=== PATIENT | male | born 1970 | race Caucasian/White ===

== ENCOUNTER 2021-01-21 08:37 | Observation (INO) | payer OTHER, SELFPAY ==
[2021-01-21] VITALS (32 sets, daily range): BP systolic 123–157; BP diastolic 88–107; PULSE 80–105; RESP 15–23; TEMP 36.2–36.9; O2SAT 89–100; BMI 29.6
--- NOTE | ~2021-01-21 | XR_ITS ---
EXAMINATION: XR chest 2V DATE: 01/21/2021 09:13 INDICATION: Chest pressure TECHNIQUE: PA and lateral views of the chest were obtained. COMPARISON: None FINDINGS: The lungs are clear with no focal airspace opacities, pulmonary edema, pleural effusion or pneumothor ax. The cardiomediastinal silhouette is normal. Mild to moderate thoracic spondylosis with mild anter ior wedging of a few lower thoracic vertebral bodies. IMPRESSION: 1. No acute cardiopulmonary disease. Reviewed, dictated and finalized at location A.
--- NOTE | 2021-01-21 08:46 | ECG_ITS ---
Measurements Intervals [place] Rate: 93 P: 17 SD: 131 QRS: 44 QRSD: 89 T: 2 QT: 319 QTc: 398 Interpretive Statements SINUS RHYTHM BASELINE ARTIFACT- I, II, III, AVR, AVL, AVF, V1-V6 NORMAL ECG Electronically Signed On 01-21-2021 8:55:47 CDT by Juan R Aleman D.O.
--- NOTE | 2021-01-21 08:54 | ED.CHESTPAIN ---
HPI - Chest Pain General Chief Complaint: Chest Pain Stated Complaint: CP Time Seen by Provider: 01/21/21 08:43 Source: patient and RN notes reviewed Mode of arrival: ambulatory Limitations: no limitations History of Present Illness HPI narrative: This is a 50 year old male with history of hypertension, hyperlipidemia who presents for evaluation of left anterior chest pain. Patient states he developed chest pain at 3 am this morning. He describes pain has pressure like someone is pushing on his chest. This pain is nonradiating and it is intermittent. He does not think it is worse with exertion, but it may be worse with cough. He reports nonproductive cough for 2 days. He denies associated diaphoresis, sob, nausea, vomiting, fever. He is concerned due to strong family history of VA. He reports his brother, mother and father all had VA. He was evaluated at [facility] prior to coming to [place] and he was given aspirin 324 mg PO. His pain is rated 2/10. He states he had a cardiac catheterization 4 years ago that was normal. Related Data Home Medications Medication Instructions Recorded Confirmed atorvastatin 40 mg PO DAILY 01/21/21 01/21/21 metoprolol succinate 25 mg PO DAILY 01/21/21 01/21/21 Allergies Allergy/AdvReac Type Severity Reaction Status Date / Time No Known Allergies Allergy Verified 01/21/21 12:43 Review of Systems Review of Systems: All systems reviewed & are unremarkable except as noted in HPI and below PMFSH Past Medical History Medical History (Updated 01/21/21 @ 16:31 by Sarah Perry MD) Hyperlipidemia Hypertension Surgical History Surgical History (Updated 01/21/21 @ 14:08 by Corina Blandon MD) H/O cardiac catheterization 2013 in [place], no abnormalities found Family History Family History (Updated 01/21/21 @ 14:10 by Corina Blandon MD) Mother Acute myocardial infarction treated with a stent about age 62 Sibling Sudden cardiac twin brother suddenly age 33, no history of heart disease, presumed heart attack. Father CAD (coronary artery disease) had history of heart attack, CABG, about 8 months after CABG as he never fully recovered. 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 Living arrangements: alone Exam Const: General: no acute distress and alert Orientation/consciousness: patient oriented x3 HENMT: Head: normocephalic and atraumatic Face and sinus: face symmetric Eyes: EOM: EOMs intact bilaterally Chest: Chest palpation & inspection: normal inspection of the chest Resp: Effort & Inspection: normal respiratory effort and no retractions Auscultation: clear to auscultation bilaterally Cardio: Rate: regular rate Rhythm: regular rhythm Heart sounds: no murmurs GI: GI Palp: Yes Soft to palpation, No Tenderness to palpation present (GI) and No Guarding due to palpation present (GI) Auscultation: normal bowel sounds Skin: General skin exam: normal color Rashes: no rashes Neuro: General: patient oriented x3, moves all extremities and CN's II-XI intact bilaterally Extrem: General: normal to inspection Psych: Mental Status: mental status grossly normal Affect: normal affect Course Consultations Consultation #1: Dr. Huddleston accepts patient to service to chest pain center. Date: 01/21/21 Time: 11:20 Vital Signs Vital signs: Vital Signs Temperature 98.4 F 01/21/21 08:42 Pulse Rate 99 01/21/21 08:42 Respiratory Rate 16 01/21/21 08:42 Pulse Oximetry 98 01/21/21 08:42 Temperature 97.2 F L 01/21/21 12:33 Pulse Rate 85 01/21/21 15:49 Respiratory Rate 16 01/21/21 13:00 Blood Pressure 135/94 H 01/21/21 15:00 Pulse Oximetry 95 01/21/21 15:00 [facility] - Chest Pain Lab Data Attestati
[2021-01-21 09:01] LABS: Basophils Absolute Auto 0.1 K/mm3 (0.0-0.1); Basophils Percent Auto 0.9 % (0.2-1.2); Eosinophils Absolute Auto 0.2 K/mm3 (0-0.3); Hematocrit 51.4 % (42.0-52.0); Hemoglobin 18.3 g/dL (14.0-18.0); Immature Granulocyte Absolute 0.06 K/mm3 (0.00-0.031); Immature Granulocyte Percent A 0.9 % (0-0.5); Lymphocytes Absolute Auto 1.71 K/mm3 (0.9-3.2); Lymphocytes Percent Auto 25.9 % (18.3-44.2); Mean Corpuscular HGB Conc 35.6 g/dl (32-36); Mean Corpuscular Hemoglobin 30.3 pg (26-34); Mean Corpuscular Volume 85.1 fl (80-100); Mean Platelet Volume 10.3 fl (7.4-10.4); Monocytes Absolute Auto 0.5 K/mm3 (0.1-0.6); Neutrophils Percent Auto 61.3 % (45.5-73.1); Platelet Count Result 239 k/mm3 (150-375); Red Blood Count 6.04 M/mm3 (4.6-6.20); White Blood Count 6.6 K/mm3 (4.5-10.0)
[2021-01-21 09:10] LABS: Anion Gap 8 mmol/L (8-16); Blood Urea Nitrogen 15 mg/dL (9-20); Calcium 9.9 mg/dL (8.4-10.2); Carbon Dioxide 29 mmol/L (22-30); Chloride 105 mmol/L (98-107); Estimated CRCL calculation 129 ml/min; Estimated Glomerular Filt Rate > 60; Glucose 134 mg/dL (65-110); Sodium 142 mmol/L (137-145)
[2021-01-21 09:13] LABS: INR 0.9; Partial Thromboplastin Time 24.8 SECONDS (22.3-36.8); Prothrombin Time 12.2 Seconds (11.1-14.7)
[2021-01-21 09:22] LABS: Troponin I < 0.012 ng/mL (0.000-0.034)
[2021-01-21 09:36] LABS: D Dimer 0.27 ug/mL (<0.48)
--- NOTE | 2021-01-21 09:52 | PC.NURSE ---
held ntg sl pt denies any cp at this time
[2021-01-21] MEDS: NITROGLYCERIN SL 0.4 MG TABLET SUBLINGUAL (10:18)
--- NOTE | 2021-01-21 10:18 | PC.NURSE ---
rates chest pain 1/10 ntg 0.4mg sl given
[2021-01-21 12:25] LABS: Troponin I < 0.012 ng/mL (0.000-0.034)
--- NOTE | 2021-01-21 13:17 | ADMGEN ---
This patient, Anders Mason, was [facility] Patient/family oriented to hospital policies and general routines including ID bracelet, bed and alarms, visiting hours, pain management, procedures, bathroom and other care routines, personal items, smoking policy, room service/diet, and visiting hours. Information on how to activate the Rapid Response Team has been discussed. Patient/Family are encouraged to report perceived risks to care and to ask questions if they do not understand what they are told or what they should do.
--- NOTE | 2021-01-21 14:02 | PM.SD2 ---
Same Day Admit/Disch: HPI History of Present Illness Chief complaint: Chest Pain Narrative: Anders Mason is a 50 year old male admitted with chest pain. Mr. Mason has not felt well for the past week or so with increased fatigue. He has had a mild minimally productive cough for the last 4 days, but no fevers, chills, trouble with taste, myalgias etc.. This morning around 3:00 a.m. he woke up with some indigestion. He tries sometimes without improvement. He went to work and the indigestion type of substernal discomfort persisted and felt like he might be almost out of breath. He felt very tired and decided to get evaluated in the emergency room. There is no nausea vomiting, diaphoresis or radiation. In the emergency room he was given a nitroglycerin and aspirin with gradual resolution of his symptoms. Over the summer the patient has been very active, able to bike 30 miles 3 times a week with no cardiovascular symptoms. He does have hyperlipidemia treated with atorvastatin and hypertension. No diabetes or smoking. He has a strong family history of heart disease. He had a cardiac catheterization done an [place] bout 2016 which apparently was normal. PMFSH Past Medical History Medical History (Updated 01/21/21 @ 15:21 by Corina Blandon MD) Hyperlipidemia Hypertension Surgical History Surgical History (Updated 01/21/21 @ 14:08 by Corina Blandon MD) H/O cardiac catheterization 2013 in [place], no abnormalities found Family History Family History (Updated 01/21/21 @ 14:10 by Corina Blandon MD) Mother Acute myocardial infarction treated with a stent about age 62 Sibling Sudden cardiac twin brother suddenly age 33, no history of heart disease, presumed heart attack. Father CAD (coronary artery disease) had history of heart attack, CABG, about 8 months after CABG as he never fully recovered. 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 Living arrangements: alone Same Day Admit/Disch: Med Pre-admit Medications Home Medications Medication Instructions Recorded Confirmed Type atorvastatin 40 mg PO DAILY 01/21/21 01/21/21 History metoprolol succinate 25 mg PO DAILY 01/21/21 01/21/21 History Exam Const: General: cooperative, healthy appearing and comfortable Nutritional Appearance: overweight HENMT: Ears: hearing grossly normal bilaterally Eyes: General: appearance normal, both eyes and all related structures Sclera: sclerae normal EOM: EOMs intact bilaterally Neck: Thyroid: thyroid normal Carotids: normal carotid upstroke and no bruits Lymphatic: lymphadenopathy not noted Chest: Chest palpation & inspection: normal inspection of the chest and normal palpation of entire chest wall Resp: Effort & Inspection: normal respiratory effort Auscultation: clear to auscultation bilaterally Cardio: Jugular venous distension: no JVD Rate: regular rate Rhythm: regular rhythm Heart sounds: no murmurs and no rubs Peripheral pulses: posterior tibial pulses present and dorsalis pedis present GI: Inspection: non-distended GI Palp: No abdominal tenderness Auscultation: normal bowel sounds Skin: General skin exam: normal color and no rashes or lesions noted Neuro: General: patient oriented x3 Speech: normal speech Extrem: General: normal to inspection and no pedal edema Psych: Appearance: grossly normal and well kempt Mental Status: mental status grossly normal Affect: normal affect Attitude: cooperative DS: Data Data Completed and Pending Labs on day of discharge: Labs from last 24 hours 01/21/21 01/21/21 01/21/21 11:51 08:50 08:50 WBC RBC Hgb Hct MCV MCH M
[2021-01-21 15:13] LABS: Troponin I < 0.012 ng/mL (0.000-0.034)
--- NOTE | 2021-01-21 15:50 | PC.NURSE ---
patient d/c instructions given. patient verbalizes understanding and all questions and concerns address. iv d/c tip intact. patient denies chest pain at d/c time and calls it 0/10 . Patient is able to ambulate with a steady gait. patient escorted by rn to er entrance and patient will drive him self home. patient is to f/u with dr canales in office.
== END 2021-01-21 15:48 | disposition home or self-care (01) ==
LOC: ANHED 08:54 → ANHCPC 12:00
PROVIDERS: Admitting Provider Specialist; Emergency Provider General Practice; PCP Student in an Organized Health Care Education/Training Program; Visit Provider Internal Medicine Cardiovascular Disease
DX: R07.89 Other chest pain (principal); I10 Essential (primary) hypertension; E78.5 Hyperlipidemia, unspecified
CPT/HCPCS: 36415; 71046; 80048; 84484; 85025; 85380; 85610; 85730; 93005; 99285; A9270; G0378

== ENCOUNTER 2021-10-21 15:55 | Outpatient (CLI) | payer BC, SELFPAY ==
[2021-10-21 19:10] LABS: Alanine Aminotransferase 49 U/L (6-50); Albumin Level 4.6 g/dL (3.5-5.1); Alkaline Phosphatase 81 U/L (38-126); Anion Gap 7 mmol/L (8-16); Aspartate Amino Transferase 45 U/L (17-59); Bilirubin,Total 0.7 mg/dL (0.2-1.3); Blood Urea Nitrogen 19 mg/dL (9-20); Calcium 9.3 mg/dL (8.4-10.2); Carbon Dioxide 27 mmol/L (22-30); Chloride 105 mmol/L (98-107); Cholesterol 153 mg/dL (0-200); Estimated Glomerular Filt Rate > 60; Glucose 117 mg/dL (65-110); HDL Direct 32 mg/dL; Potassium 3.9 mmol/L (3.4-5.0); Sodium 139 mmol/L (137-145); Triglycerides 293 mg/dL (<150)
[2021-10-21 19:15] LABS: Hematocrit 48.8 % (42.0-52.0); Hemoglobin 17.4 g/dL (14.0-18.0); Mean Corpuscular HGB Conc 35.7 g/dl (32-36); Mean Corpuscular Hemoglobin 29.5 pg (26-34); Mean Corpuscular Volume 82.7 fl (80-100); Mean Platelet Volume 11.4 fl (7.4-10.4); Platelet Count Result 314 k/mm3 (150-375); Red Cell Distribution Width 12.3 % (11.5-14.5); White Blood Count 6.7 K/mm3 (4.5-10.0)
[2021-10-21 19:21] LABS: LDL Cholesterol Direct 70 mg/dL
[2021-10-21 19:38] LABS: Hemoglobin A1C 5.8 % (<5.7)
== END 2021-10-21 15:56 | disposition home or self-care (01) ==
LOC: ANHGOSHLAB 15:56
PROVIDERS: PCP Family Medicine; Visit Provider Family Medicine
DX: I10 Essential (primary) hypertension (principal); E78.5 Hyperlipidemia, unspecified; R79.9 Abnormal finding of blood chemistry, unspecified
CPT/HCPCS: 36415; 80053; 80061; 83036; 85027

== ENCOUNTER 2022-07-19 15:37 | Outpatient (CLI) | payer OTHER, SELFPAY ==
[2022-07-19 15:56] LABS: Basophils Absolute Auto 0.1 K/mm3 (0.0-0.1); Basophils Percent Auto 0.8 % (0.2-1.2); Eosinophils Absolute Auto 0.2 K/mm3 (0-0.3); Hematocrit 47.7 % (42.0-52.0); Hemoglobin 16.6 g/dL (14.0-18.0); Immature Granulocyte Absolute 0.05 K/mm3 (0.00-0.031); Immature Granulocyte Percent A 0.8 % (0-0.5); Lymphocytes Absolute Auto 1.75 K/mm3 (0.9-3.2); Lymphocytes Percent Auto 28.1 % (18.3-44.2); Mean Corpuscular HGB Conc 34.8 g/dl (32-36); Mean Corpuscular Hemoglobin 29.2 pg (26-34); Mean Platelet Volume 10.8 fl (7.4-10.4); Monocytes Absolute Auto 0.5 K/mm3 (0.1-0.6); Monocytes Percent Auto 7.4 % (2.6-8.5); Neutrophils Absolute Auto 3.7 K/mm3 (1.3-6.7); Neutrophils Percent Auto 59.9 % (45.5-73.1); Platelet Count Result 244 k/mm3 (150-375); Red Blood Count 5.68 M/mm3 (4.6-6.20); Red Cell Distribution Width 12.1 % (11.5-14.5); White Blood Count 6.2 K/mm3 (4.5-10.0)
[2022-07-19 16:32] LABS: Alanine Aminotransferase 41 U/L (6-50); Albumin Level 4.4 g/dL (3.5-5.1); Alkaline Phosphatase 82 U/L (38-126); Anion Gap 7 mmol/L (8-16); Aspartate Amino Transferase 27 U/L (17-59); Bilirubin,Total 0.5 mg/dL (0.2-1.3); Blood Urea Nitrogen 18 mg/dL (9-20); Calcium 8.8 mg/dL (8.4-10.2); Carbon Dioxide 25 mmol/L (22-30); Chloride 104 mmol/L (98-107); Estimated Glomerular Filt Rate > 60; Glucose 165 mg/dL (65-110); Potassium 4.3 mmol/L (3.4-5.0); Sodium 136 mmol/L (137-145)
[2022-07-26 16:03] LABS: CALR Exon 9 Mutation Not Detected (Not Detected); CSF3R Exon 14/17 Mutation Not Detected (Not Detected); JAK2 Exon 12 Mutation Not Detected (Not Detected); JAK2 V617F Mutation Not Detected (Not Detected); MPL Exon 10 Mutation Not Detected (Not Detected); Specimen Source Blood
== END 2022-07-19 15:38 | disposition home or self-care (01) ==
LOC: ANHLAB 15:40
PROVIDERS: PCP Family Medicine; Visit Provider Internal Medicine Hematology & Oncology
DX: D75.1 Secondary polycythemia (principal)
CPT/HCPCS: 36415; 80053; 81219; 81270; 81279; 81339; 81479; 82668; 85025

== ENCOUNTER 2023-01-19 14:45 | Outpatient (CLI) | payer OTHER, SELFPAY ==
[2023-01-19 14:58] LABS: Hematocrit 48.3 % (42.0-52.0); Hemoglobin 16.7 g/dL (14.0-18.0); Mean Corpuscular HGB Conc 34.6 g/dl (32-36); Mean Corpuscular Volume 83.9 fl (80-100); Mean Platelet Volume 10.5 fl (7.4-10.4); Platelet Count Result 243 k/mm3 (150-375); Red Blood Count 5.76 M/mm3 (4.6-6.20); Red Cell Distribution Width 12.2 % (11.5-14.5); White Blood Count 6.5 K/mm3 (4.5-10.0)
== END 2023-01-19 14:46 | disposition home or self-care (01) ==
LOC: ANHLAB 14:47
PROVIDERS: PCP Family Medicine; Visit Provider Internal Medicine Hematology & Oncology
DX: D75.1 Secondary polycythemia (principal)
CPT/HCPCS: 36415; 85027

== ENCOUNTER 2023-11-15 14:11 | Outpatient (CLI) | payer OTHER, SELFPAY ==
[2023-11-15 14:30] LABS: Hematocrit 48.7 % (42.0-52.0); Hemoglobin 16.9 g/dL (14.0-18.0); Mean Corpuscular HGB Conc 34.7 g/dl (32-36); Mean Corpuscular Volume 83.5 fl (80-100); Mean Platelet Volume 10.7 fl (7.4-10.4); Platelet Count Result 212 k/mm3 (150-375); Red Blood Count 5.83 M/mm3 (4.6-6.20); Red Cell Distribution Width 12.5 % (11.5-14.5); White Blood Count 6.1 K/mm3 (4.5-10.0)
[2023-11-15 14:35] LABS: Blood Urea Nitrogen 17 mg/dL (8-26); Carbon Dioxide 28 mmol/L (22-30); Chloride 101 mmol/L (98-109); Estimated Glomerular Filt Rate > 60; Glucose 105 mg/dL (70-105); Ionized Calcium (POC) 1.17 mmol/L (1.11-1.31); Potassium 3.6 mmol/L (3.5-4.9); Sodium 140 mmol/L (138-146)
== END 2023-11-15 14:12 | disposition home or self-care (01) ==
LOC: ANHLAB 14:18
PROVIDERS: PCP Family Medicine; Visit Provider Internal Medicine Hematology & Oncology
DX: D75.1 Secondary polycythemia (principal)
CPT/HCPCS: 36415; 80047; 85027